=== PATIENT | male | born 1995 | race Caucasian/White ===

== ENCOUNTER → 2021-02-04 09:57 | Outpatient (CLI) | payer BC, SELFPAY | PROVIDERS: PCP Family Medicine; Visit Provider Nurse Practitioner | DX: U07.1 COVID-19 (principal) | CPT/HCPCS: C9803; U0003; U0005 ==

== ENCOUNTER 2023-10-22 15:02 | Outpatient (CLI) | payer BC, SELFPAY ==
[2023-10-22 16:28] LABS: Semen Viscosity Normal (Normal); Sperm Count 2 mil/mm3 (20-160)
[2023-10-22 16:29] LABS: Motility Quality Moderate Progression (Mod-Rapid); Sperm Motility 30 % (50-90); WBCs,Semen Negative
[2023-10-22 17:54] LABS: Sperm Morphology Normal (Normal)
[2023-10-22 18:10] LABS: 3Hr Sperm Motility 40 % (50-60)
[2023-10-22 18:11] LABS: 3Hr Motility Quality Moderate Progression (Mod-Rapid)
== END 2023-10-22 23:59 | disposition home or self-care (01) ==
LOC: LAB.DROPOF 15:04
PROVIDERS: PCP Family Medicine; Visit Provider Obstetrics & Gynecology
DX: Z31.41 Encounter for fertility testing (principal)
CPT/HCPCS: 89320

== ENCOUNTER 2023-12-20 10:20 | Outpatient (CLI) | payer BC, SELFPAY ==
--- OUTSIDE RECORDS SUMMARY | 2023-12-20 10:23 | XMS_ITS ---
Author [facility] Address [address] [place] [phone] Care Team Providers Care Ad Writer Name Role Phone Steve Green Primary Care Provider Clarissa Olmedo Unavailable [phone] ALLERGIES Allergen (clinical drug ingredient) Drug/Non Drug Allergy documented on EMR Reaction Allergy Type Onset Date Status cefaclor Cefaclor Unknown Drug Allergy Active REASON FOR REFERRAL Diagnosis 1 Vertigo (R42) [facility] Referring Provider First Name Clarissa Referring Provider Last Name Honorio Referring Provider Speciality Family Pra ctice Referred Provider ENT, . Referred Provider Specialty ENT General Notes Clarissa Olmedo 1:46:53 PM > persistent vertigo ; hearing lossKeyona Julia 12/07/2023 1:54:02 PM > assigned to scheduling.Rose Brynn 12/07/2023 2:01:18 PM > faxed to [facility] ENT Referral Priority Routine REASON FOR VISIT feels like he will pass out MEDICATIONS Medication SIG (Take, Route, Fr equency, Duration) Notes Start Date End Date Status Melatonin 5 MG 1 tablet in the even ing Orally Once a day Active PROBLEMS Problem Type ICD Code Onset Dates Problem Status W/U Status Risk SNOMED Code Notes Problem Hearing loss (H91.90) Active confirmed Hearing loss (70098668) Problem Insomnia (G47.00) Active confirmed Insomnia (442328607) VITAL SIGNS Weight 197.8 lbs 11/30/2023 Blood pressure systolic 128 mm Hg 11/30/19 24 Blood pressure diastolic 68 mm Hg 024 Heart Rate 63 /min 11/30/2023 Height 70.50 in 11/30/2023 BMI 27.98 kg/m2 11/30/2023 Encounters Encounter Location Date Provider Diagnosis [facility] [address] [facility] [address] [place] [phone] 11/30/2023 Clarissa Olmedo Hearing loss H91.90 ; Vertigo R42 and Insomnia G47.00 ASSESSMENTS Encounter Date Diagnosis Assessment Notes Treatment Notes Treatment Clinical Notes 11/30/2023 Hearing loss (ICD-10 - H91.90) [...] of caffeine several hours before his HS PLAN OF TREATMENT Medication Medication Name Sig Start Date Stop [...] before his HS Referrals Referral Date Details . ENT Next Appt Details Follow Up: prn, Reason: Progress Notes * Examination Category Sub-Category Detail Notes ENT/Respiratory Oral cavity : no erythema or e xudate seen on pharynx Ears: auditory canals norm al [...] motor WNL; no rapid alternating eye movements History and Physical Notes * HPI (History of Present Illness) Category Sub-Category Detail Notes ENT/respiratory sore throat ear pain cough Fever rhinorrhea Constitutional fatigue [...] it comes it out of no where Consultation Request Notes Referral Date Referring Provider Referred Provider Not es 11/30/2023 Clarissa Olmedo ENT, .
--- OUTSIDE RECORDS SUMMARY | 2023-12-20 10:23 | XMS_ITS | Patient Health Record ---
[facility] Address [address] [place] [id number] Care Team Providers Care Tour Manager Name Role Phone Steve Green Primary Care Provider Clarissa Olmedo Unavailable [phone] ALLERGIES Allergen (clinical drug ingredient) Drug/Non Drug Allergy documented on EMR Reaction Allergy Type Onset Date Status cefaclor Cefaclor Unknown Drug Allergy Active MEDICATIONS Medication SIG (Take, Route, Fr equency, Duration) Notes Start Date End Date Status Melatonin 5 MG 1 tablet in the even ing Orally Once a day Active IMMUNIZATIONS Vaccine Route Administration Date Status Comme nts HEPB VACC PED/ADOL DOSE IM Unknown 11/08/1995 Administe red MENINGOCOCCAL VACCINE, SC IM Intramuscular 08/14/2006 Admi nistered MMR Unknown 02/25/1996 Administered MMR Unknown 12/03/1998 Administered Tetanus Tdap-Adacel (over 7yrs) IM Intramuscular 08/14/2006 Administered SOCIAL HISTORY Sex Assigned At : Social History Observation Description Sex Assigned At Unknown PROBLEMS Problem Type ICD Code Onset Dates Problem Status W/U Status Risk SNOMED Code Notes Problem Insomnia (G47.00) Active confirmed Insomnia (443488894) Problem Hearing loss (H91.90) Active confirmed Hearing loss (72166960) VITAL SIGNS Heart Rate 63 /min 11/30/2023 Blood pressure diastolic 68 mm Hg 11/30/2023 Height 70.50 in 11/30/2023 Blood pressure systolic 128 mm Hg 11/30/2023 Weight 197.8 lbs 11/30/2023 BMI 27.98 kg/m2 11/30/2023 Encounters Encounter Location Date [facility] [address] [facility] [address] [place] [id number] 11/30/2023 Clarissa Olmedo Hearing loss H91.90 ; Vertigo R42 and Insomnia G47.00 ASSESSMENTS Encounter Date Diagnosis Assessment Notes Treatment Notes Treatment Clinical Notes 11/30/2023 Vertigo (ICD-10 - R42) continue with PRN Meclizine; ENT referral; suggested that the large dose of Melatonin may be part of the issue with his dizziness; also discussed the hot work environment and to increase water intake; possible BPPV 11/30/2023 Hearing loss (ICD-10 - H91.90) ENT referral 11/30/2023 Insomnia (ICD-10 - G47.00) discussed decreasing Melatonin due to possible SE from this; discussed sleep hygiene with decrease of caffeine several hours before his HS PLAN OF TREATMENT No Information Insurance Providers Payer Name Payer Address Payer Phone Subscriber Number Group Number Insured Name Patient Relationship to Insured Coverage Start Date Coverage End Date MAGGI DOSHI [facility] [address] [place] [address] [id number] JOURDAN WILSON Self - patient is the insured MEDICATIONS ADMINISTERED Medication Instructions Date of Administration Dosage Notes Bicillin LA 1,200,000 11/24/2004 0.5 cm3 Depo- Medrol 40 mg/ml 06/03/2009 1 mL MEDICAL (GENERAL) HISTORY Surgical History Surgery Date(Month/Year) lesion removed from lip Hospitalization History Reason Date(Month/Year) [facility] ER-ear ache 05/17/09
--- OUTSIDE RECORDS SUMMARY | 2023-12-20 10:23 | XMS_ITS ---
Author Organization [facility] Address [address] [place] [id number] Care Team Providers Care Hybrid Tester Name Role Phone Steve Green Primary Care Provider Migration, Provider Unavailable Unavailable ALLERGIES Allergen (clinical drug ingredient) Drug/Non Drug Allergy documented on EMR Reaction Allergy Type Onset Date Status cefaclor Cefaclor Unknown Drug Allergy Active [facility]AS[facility] Encounter MEDICATIONS Medication SIG (Take, Route, Fr equency, Duration) Notes Start Date End Date Status Clotrimazole 1 % 1 kam applied topica lly 2 times a day for 2 weeks 02/26/2015 Not-Taking Encounters Encounter Location Date Provider Diagnosis [facility] [address] [place] [phone] 07/25/2022 Provider Migration PLAN OF TREATMENT No Information
[2023-12-20 11:37] LABS: Free T4 (Free Thyroxine) 0.94 ng/dl (0.78-2.19)
[2023-12-20 11:52] LABS: Thyroid Stimulating Hormone 0.93 uIU/mL (0.465-4.68)
== END 2023-12-20 23:59 | disposition home or self-care (01) ==
LOC: LAB 10:21
PROVIDERS: PCP Family Medicine; Visit Provider Nurse Practitioner
DX: R42 Dizziness and giddiness (principal); M54.2 Cervicalgia
CPT/HCPCS: 36415; 84439; 84443

== ENCOUNTER 2023-12-28 06:28 | Outpatient (CLI) | payer BC, SELFPAY ==
--- NOTE | 2023-12-28 06:28 | CT_ITS ---
FINAL REPORT CLINICAL HISTORY: .vertigo COMPARISON: None FINDINGS: Axial images of the head were obtained without contrast. Coronal and sagittal reformatted images were also obtained.This study was performed with techniques to keep radiation doses as low as reasonably achievable (ALARA). Individualized dose reduction techniques using automated exposure control or adjustment of mA and/or kV according to the patient's size were employed. There is no evidence of intracranial hemorrhage or mass. The ventricular size is within normal limits. There is no evidence of shift of the midline structures. No abnormal extra axial fluid collection is identified. No skull abnormality is seen on the bone window images. IMPRESSION: No acute intracranial abnormality. Authenticated and ERN
--- NOTE | 2023-12-28 06:28 | CT_ITS ---
FINAL REPORT TECHNIQUE: Thin section axial CT images with coronal and sagittal reformats were performed through the neck. This study was performed with techniques to keep radiation doses as low as reasonably achievable (ALARA). Individualized dose reduction techniques using automated exposure control or adjustment of mA and/or kV according to the patient's size were employed. CLINICAL HISTORY: .vertigo COMPARISON: None FINDINGS: CT SOFT TISSUES NECK: The nasopharynx, oropharynx, hypopharynx, and larynx are unremarkable in appearance. The salivary glands are unremarkable. There are small nonspecific bilateral cervical lymph nodes noted, but no evidence of adenopathy is seen. The thyroid gland is unremarkable in appearance. IMPRESSION: No acute process. Authenticated and ERN
== END 2023-12-28 23:59 | disposition home or self-care (01) ==
LOC: RAD 06:28
PROVIDERS: PCP Family Medicine; Visit Provider Nurse Practitioner
DX: R42 Dizziness and giddiness (principal); M54.2 Cervicalgia
CPT/HCPCS: 70450; 70490

== ENCOUNTER 2024-01-27 13:52 | Outpatient (POV) | payer BC, SELFPAY | END 2024-01-27 23:59 | disposition home or self-care (01) | LOC: SC 13:52 | PROVIDERS: Visit Provider Specialist/Technologist | DX: Z00.00 Encounter for general adult medical examination without abnormal findings (principal) ==

== ENCOUNTER 2024-06-08 09:46 | Day surgery (SDC) | payer BC, SELFPAY ==
[2024-06-08 10:11] VITALS: BP 128/86; PULSE 78; RESP 18; TEMP 36.7; O2SAT 97; BMI 28.7
[2024-06-08 10:45] LABS: Basophils # 0.1 K/mm3 (0-0.2); Eosinophils # 0.1 K/mm3 (0.0-0.4); Eosinophils % 2.2 % (0.1-12.0); Hematocrit 44.5 % (42.0-52.0); Hemoglobin 14.9 g/dL (14.1-18.0); Lymphocytes % 33.9 % (10-50); Mean Corpuscular HGB Conc 33.5 g/dL (31.8-35.4); Mean Corpuscular Volume 86.6 fl (80-94); Monocytes # 0.7 K/mm3 (0.1-1.0); Monocytes % 11.3 % (1.7-9.3); Neutrophils % 51.3 % (37.0-80.0); Nucleated Red Blood Cells # 0 10^3/uL; Nucleated Red Blood Cells % 0 %; Platelet Count 331 K/mm3 (142-424); Red Blood Count 5.14 M/mm3 (4.60-6.20); Red Cell Distribution Width 13.3 % (11.5-17.5); Red Cell Distribution Width-SD 42.3 fL; White Blood Count 5.9 K/mm3 (4.8-10.8)
[2024-06-08 11:18] LABS: Alanine Aminotransferase 20 U/L (12-78); Albumin Level 4.2 g/dl (3.5-5.0); Albumin/Globulin Ratio 1.3 (1.1-1.8); Alkaline Phosphatase 61 U/L (38-126); Anion Gap 13.3 mEq/L (5-15); Aspartate Amino Transferase 27 U/L (17-59); Bilirubin,Total 0.5 mg/dl (0.2-1.3); Blood Urea Nitrogen 17 mg/dl (9-20); Calcium 9.1 mg/dl (8.4-10.2); Carbon Dioxide 26 mmol/L (22.0-30.0); Chloride 105 mmol/L (98-107); Creatinine Clearance Estimated 160 mL/min (50-200); Estimated Glomerular Filt Rate 100 ml/min (>60); GFR (African American) 121 ML/MIN (>60); Globulin 3.2 g/dL (1.3-3.2); Glucose 97 mg/dl (74-100); Potassium 4.3 mmoL/L (3.5-5.1); Sodium 140 mmol/L (136-145); Total Protein,Serum 7.4 g/dl (6.3-8.2)
[2024-06-08 12:08] LABS: Vitamin B12 781 pg/mL (239-931)
--- NOTE | 2024-06-08 15:05 | P.PCN_ITS ---
[facility] Procedure Note Date: 06/08/24 Time: 10:00 Procedure Note:: Tilt Table Procedure Note Procedure:? Upright Tilt Table Test Requesting Physician: Dr. Shasha Gay Indication: Recurrent near syncope Medications:?None ? Pre-test Vital Signs: (Supine):?BP 132/66, HR 61, O2 100% Procedure Summary: Patient placed supine on tilt table and secured with straps.? EKG, blood pressure cuff, and pulse oximeter were all in place and monitored every 5 to 10 minutes.? Table was tilted to 70 to 80 degrees within 10 to 15 seconds.? Vitals continuously monitored every 1 to 2 minutes.? Patient maintained upright position for 10 minutes at which point he developed pallor, diaphoresis, and near syncope with increase in HR to 100bpm and no significant change in blood pressure. Patient was returned to supine position and had almost immediate relief of symptoms. There was no LOC. Patient quickly returned to baseline and the test was terminated. Complications: None Conclusion: Test results consistent with POTS
== END 2024-06-08 23:59 | disposition home or self-care (01) ==
LOC: RT 06-09 07:37
PROVIDERS: PCP Family Medicine; Visit Provider Specialist
DX: R55 Syncope and collapse (principal); R23.1 Pallor; R61 Generalized hyperhidrosis; R00.0 Tachycardia, unspecified
CPT/HCPCS: 80053; 82607; 85025; 93660

== ENCOUNTER → 2024-08-02 07:50 | Outpatient (CLI) | payer BC, SELFPAY ==
--- OUTSIDE RECORDS SUMMARY | 2023-11-30 09:15 | XMS_ITS ---
Author Organization [facility] Address [address] [place] [phone] Care Team Providers Care Tanyard Worker Name Role Phone Steve Green Primary Care Provider Clarissa Olmedo Unavailable [phone] Allergies Allergen (clinical drug ingredient) Drug/Non Drug Allergy documented on EMR Reaction Allergy Type Onset Date Status cefaclor Cefaclor Unknown Drug Allergy Active Reason For Referral Diagnosis 1 Vertigo (R42) [facility] Referring Provider First Name Clarissa Referring Provider Last Name Honorio Referring Provider Speciality Family Pra ctice Referred Provider ENT, . Referred Provider Specialty ENT General Notes Clarissa Olmedo 1:46:53 PM > persistent vertigo ; hearing lossKeyona Julia 12/07/2023 1:54:02 PM > assigned to scheduling.Rose Brynn 12/07/2023 2:01:18 PM > faxed to [facility] ENT Referral Priority Routine REASON FOR VISIT feels like he will pass out Medications Medication SIG (Take, Route, Fr equency, Duration) Notes Start Date End Date Status Melatonin 5 MG 1 tablet in the even ing Orally Once a day Active Problems Problem Type SNOMED Code ICD Code Onset Dates Problem Status W/U Status Risk Notes Problem Hearing loss (H91.90) Active confirmed Problem Insomnia (530617583) Insomnia (G47.00) Active confirmed Vital Signs Blood pressure systolic 128 mm Hg 11/30/19 24 Blood pressure diastolic 68 mm Hg 024 Heart Rate 63 /min 11/30/2023 Height 70.50 in 11/30/2023 Weight 197.8 lbs 11/30/2023 BMI 27.98 kg/m2 11/30/2023 Encounters Encounter Location Date Provider Diagnosis [facility] [address] [facility] [address] [place] [phone] 11/30/2023 Clarissa Olmedo Hearing loss H91.90 ; [...] Notes * JOURDAN WILSONDOB:[birth year] (28 yo M)Acc No.[id number]:11/30/2023 Progress Notes Patient: JOURDAN CASTILLO TYLER Provider: AGATHA Nino :1995 A ge:28 Y S ex:Male Date:11/30/2023 Address:[facility] [address], [id number] Pcp:Steve Green Subjective: * Chief Complaints: * [...] rn * Billing Information: * Visit Code: 04735 Office Visit, Est Pt., Level 4. * Procedure Codes: 76269 PULSE OX. * Electronic signature of Elsi Olmedo APRN on 08/02/2024 at 07:53 AM EDT Sign off status: Pending * Provider: AGATHA Nino Date: Generated for Shania ruff/Prashant/Innaitting on: 0 08/02/2024 07:53 AM EDT History and Physical Notes * [...]
--- OUTSIDE RECORDS SUMMARY | 2024-08-02 07:53 | XMS_ITS | Clinical Summary ---
Author Organization [facility] Address [address] [place] [address] Care Team Providers Care Insulation Worker Name Role Phone Pcp, No Primary Care Provider [phone] Source Comments This information has been disclosed to you from confidential records protectedfrom disclosure by state law. You shall make no further disclosure of thisinformation without the specific, written, and informed release of theindividual to whom it pertains, or as otherwise permitted by law. A generalauthorization for the release of medical or other information is not sufficientfor the purposes of therelease of HIV test results or diagnoses. [id number] Social History Tobacco Use Types Packs/Day Years Used Date Smoking Tobacco: Never Assessed Sex and Gender Information Value Date Recorded Sex Assigned at Not on file Legal Sex Male 1:16 PM EST Gender Identity Not on file Sexual Orientation Not on file Plan of Treatment Health Maintenance Due Date Last Done Comments Alcohol Misuse Screening 2012 Depression Screening 2012 HIV Screening 2012 Immunization: DTaP/Tdap/Td ( 1 - Tdap) 2013 Immunization: Hepatitis B (1 of 3 - 19+ 3-dose series) 2013 Immunization: COVID-19 ( season) 2023 Immunization: Influenza (MyC gould) (Season Ended) 2024 Hepatitis C Screening (MyChart) Completed Immunization: Pneumococcal Aged Out N o longer eligible based on patient's age to complete this topic Procedures Procedure Name Priority Date/Time Associated Diagnosis Comments HEPATITIS C AB W/REFLEX TO HCV RNA, QN, PCR Routine 01/18/2024 2:32 PM EST from Last 3 Months or Most Recently Relevant to Health Maintenance Results * Hepatitis C Ab w/reflex to HCV RNA, QN, PCR (01/18/2024 2:32 PM EST) HCV Ab Non Reactive Non Reactive [facility] 1 01/18/2024 2:32 PM EST 01/18/2024 Narrative [facility] - 01/19/2024 6:09 AM EST Performed at: - [facility] [address] [id number] Floor Space Allocator: Fco Pimentel PhD, Phone: [phone] us Jenae Henry MD LAB BLOOD ORDERABLES Final R esult [facility] 1 from Last 3 Months or Most Recently Relevant to Health Maintenance [place] [address] Care Teams Insulation Worker Relationship Specialty Start Date End Date Pcp, No No Address PCP - General 01/18/24
--- OUTSIDE RECORDS SUMMARY | 2024-08-02 07:53 | XMS_ITS | Patient Health Record ---
Author [facility] Address [address] [place] [phone] Care Team Providers Care Air Brush Artist Name Role Phone Steve Green Primary Care Provider Clarissa Olmedo [phone] Allergies Allergen (clinical drug ingredient) Drug/Non Drug Allergy documented on EMR Reaction Allergy Type Onset Date Status cefaclor Cefaclor Unknown Drug Allergy Active Medications Medication SIG (Take, Route, Fr equency, Duration) Notes Start Date End Date Status Melatonin 5 MG 1 tablet in the even ing Orally Once a day Active Immunizations Vaccine Route Administration Date Status Comme nts Tetanus Tdap-Adacel (over 7yrs) IM Intramuscular 08/14/2006 Administered MMR Unknown 02/25/1996 Administered MMR Unknown 12/03/1998 Administered MENINGOCOCCAL VACCINE, SC IM Intramuscular 08/14/2006 Admi nistered HEPB VACC PED/ADOL DOSE IM Unknown 11/08/1995 Administe red Problems Problem Type SNOMED Code ICD Code Onset Dates Problem Status W/U Status Risk Notes Problem Insomnia (960991041) Insomnia (G47.00) Active confirmed Problem Hearing loss (H91.90) Active confirmed Vital Signs Heart Rate 63 /min 11/30/2023 Blood pressure diastolic 68 mm Hg 11/30/2023 Height 70.50 in 11/30/2023 Blood pressure systolic 128 mm Hg 11/30/2023 Weight 197.8 lbs 11/30/2023 BMI 27.98 kg/m2 11/30/2023 Encounters Encounter Location Date Provider [facility] [address] [place] [id number] 11/30/2023 Clarissa Olmedo Hearing loss H91.90 ; Vertigo R42 and Insomnia G47.00 Assessments Encounter Date Diagnosis (ICD Code) Assessment Notes Treatment Notes Treatment Clinical Notes Section Notes 11/30/2023 Vertigo (ICD-10 - R42) continue [...] hours before his HS Plan Of Treatment No Information Insurance Providers Payer Name Payer Address Payer Phone Subscriber Number Group Number Insured Name Patient Relationship to Insured Coverage Start Date Coverage End Date MAGGI DOSHI [employer] [address] [place] [address] [phone] [id number] JOURDAN WILSON Self - patient is the insured Medications Administered Medication Instructions Date of Administration Dosage Notes Bicillin LA 1,200,000 11/24/2004 0.5 mL Depo- Medrol 40 mg/ml 06/03/2009 1 mL Medical (General) History Surgical History Surgery Date(Month/Year) lesion removed from lip Hospitalization History Reason Date(Month/Year) [facility] ER-ear ache 05/17/09
== END ==
LOC: SL 07:51
PROVIDERS: PCP Specialist; Visit Provider Specialist
DX: G47.30 Sleep apnea, unspecified (principal); G47.26 Circadian rhythm sleep disorder, shift work type; R53.83 Other fatigue; R06.83 Snoring
CPT/HCPCS: G0399

== ENCOUNTER 2024-08-03 07:51 | Outpatient (CLI) | payer BC, SELFPAY ==
--- OUTSIDE RECORDS SUMMARY | 2023-11-30 09:15 | XMS_ITS ---
Author [facility] Address [address] [place] [phone] Care Team Providers Care Cooker Syrup Name Role Phone Steve Green Primary Care Provider Clarissa Olmedo Unavailable [phone] Allergies Allergen (clinical drug ingredient) Drug/Non Drug Allergy documented on EMR Reaction Allergy Type Onset Date Status cefaclor Cefaclor Unknown Drug Allergy Active Reason For Referral Diagnosis 1 Vertigo (R42) Referral [facility] Referring Provider First Name Clarissa Referring Provider Last Name Honorio Referring Provider Speciality Family Pra ctice Referred Provider ENT, . Referred Provider Specialty ENT General Notes Clarissa Olmedo 1:46:53 PM > persistent vertigo ; hearing lossKeyona Julia 12/07/2023 1:54:02 PM > assigned to scheduling.Rose Brynn 12/07/2023 2:01:18 PM > faxed to [facility] ENT Referral Priority Routine REASON FOR VISIT feels like he will pass out Medications Medication SIG (Take, Route, Fr equency, Duration) Notes Start Date End Date Status Melatonin 5 MG 1 tablet in the even ing Orally Once a day Active Problems Problem Type SNOMED Code ICD Code Onset Dates Problem Status W/U Status Risk Notes Problem Hearing loss (47782108) Hearing loss (H91.90) Active confirmed Problem Insomnia (765250833) Insomnia (G47.00) Active confirmed Vital Signs Blood pressure systolic 128 mm Hg 11/30/19 24 Blood pressure diastolic 68 mm Hg 024 Heart Rate 63 /min 11/30/2023 Height 70.50 in 11/30/2023 Weight 197.8 lbs 11/30/2023 BMI 27.98 kg/m2 11/30/2023 Encounters Encounter Location Date Provider Diagnosis [facility] [address] [place] [phone] 11/30/2023 Clarissa Olmedo Hearing loss H91.90 ; [...] Notes * JOURDAN WILSONDOB:[birth year] (28 yo M)Acc No.[id number]:11/30/2023 Progress Notes Patient: Alok MARYSEJOURDAN Vo Provider: AGATHA Nino :1995 A ge:28 Y S ex:Male Date:11/30/2023 Address:[facility] [address], [id number] Pcp:Steve Green Subjective: * Chief Complaints: * [...] NAD alert active well nourished and hydrated. Eyes: sclera and conjunctiva clear. Ears: auditory canals normal bilaterally tympanic membranes normal bilaterally. Nose : nares patent. Oral cavity : no erythema or exudate seen on pharynx.? Neck : supple no cervical lymphadenopathy thyroid normal; FROM. Heart : RRR. Lungs: CTAB A&P. Extremities : no edema. G eneral Examination: Neurologic [...] OX * Follow Up: p rn * Billing Information: * Visit Code: 63881 Office Visit, Est Pt., Level 4. * Procedure Codes: 38731 PULSE OX. * Electronic signature of Elsi Olmedo APRN on 08/03/2024 at 07:54 AM EDT Sign off status: Pending * Provider: AGATHA Nino Date: Generated for Shania ruff/Prashant/Innaitting on: 0 08/03/2024 07:54 AM EDT History and Physical Notes * [...]
--- OUTSIDE RECORDS SUMMARY | 2024-08-03 07:54 | XMS_ITS | Patient Health Record ---
Author Organization [facility] Address [address] [facility] [address] [place] [phone] Care Team Providers Care Production Cell Leader Name Role Phone Steve Green Primary Care Provider Clarissa Olmedo Unavailable [phone] Allergies Allergen (clinical drug ingredient) Drug/Non Drug [...] Status W/U Status Risk Notes Problem Insomnia (902271987) Insomnia (G47.00) Active confirmed Problem Hearing loss (63938803) Hearing loss (H91.90) Active confirmed Vital Signs Heart Rate 63 /min 11/30/2023 Blood pressure diastolic 68 mm Hg 11/30/2023 Height 70.50 in 11/30/2023 Blood pressure systolic 128 mm Hg 11/30/2023 Weight 197.8 lbs 11/30/2023 BMI 27.98 kg/m2 11/30/2023 Encounters Encounter Location Date Provider [facility] [address] [place] [id number] 11/30/2023 Clarissa Olmedo Hearing loss H91.90 ; [...] [employer] [address] [place] [address] [id number] JOURDAN WILSON Self - patient is the insured Medications Administered Medication Instructions Date of Administration Dosage Notes Bicillin LA 1,200,000 11/24/2004 0.5 mL Depo- Medrol 40 mg/ml 06/03/2009 1 mL Medical (General) History Surgical History Surgery Date(Month/Year) lesion removed from lip Hospitalization History Reason Date(Month/Year) [facility] ER-ear ache 05/17/09
--- OUTSIDE RECORDS SUMMARY | 2024-08-03 07:54 | XMS_ITS | Clinical Summary ---
Author Organization [facility] Address [address] [place] [address] Care Team Providers Care Electrotype Finisher Name Role Phone Pcp, No Primary Care Provider [phone] Source Comments This information has been disclosed [...] therelease of HIV test results or diagnoses. [id number] Social History Tobacco Use Types Packs/Day [...] 6:09 AM EST Performed at: - [facility] [address] [id number] Buckle Stringer: Fco Pimentel PhD, Phone: [phone] us Jenae Henry MD LAB BLOOD ORDERABLES Final R esult [facility] 1 from Last 3 Months or Most Recently Relevant to Health Maintenance [place] [address] [address] [place] [address] Care Teams Electrotype Finisher Relationship Specialty Start Date End Date Pcp, No No Address PCP - General 01/18/24
[2024-08-03 08:15] LABS: Basophils # 0.1 K/mm3 (0-0.2); Eosinophils # 0.2 Kmm3 (0.0-0.4); Eosinophils % 2.5 % (0.1-12.0); Hematocrit 46.2 % (42.0-52.0); Hemoglobin 14.9 g/dL (14.1-18.0); Immature Granulocytes # 0.02 10^3uL; Immature Granulocytes % 0.3 %; Lymphocytes # 2.9 K/mm3 (0.7-4.5); Lymphocytes % 42.2 % (10-50); Mean Corpuscular HGB Conc 32.3 g/dL (31.8-35.4); Mean Corpuscular Volume 86.7 fl (80-94); Mean Platelet Volume 10.6 fl (7.4-10.4); Monocytes # 0.7 K/mm3 (0.1-1.0); Monocytes % 10.5 % (1.7-9.3); Neutrophils # 2.9 K/mm3 (1.8-7.8); Neutrophils % 43.5 % (37.0-80.0); Nucleated Red Blood Cells # 0 10^3/uL; Nucleated Red Blood Cells % 0 %; Platelet Count 296 K/mm3 (142-424); Red Blood Count 5.33 M/mm3 (4.60-6.20); Red Cell Distribution Width 13.3 % (11.5-17.5); Red Cell Distribution Width-SD 42.1 fL; White Blood Count 6.8 K/mm3 (4.8-10.8)
[2024-08-03 08:41] LABS: Alanine Aminotransferase 26 U/L (12-78); Albumin Level 4.1 g/dl (3.5-5.0); Alkaline Phosphatase 59 U/L (38-126); Anion Gap 6.4 mEq/L (5-15); Aspartate Amino Transferase 25 U/L (17-59); Bilirubin,Direct 0.1 mg/dl (0.0-0.4); Bilirubin,Indirect 0.3 mg/dL (0.0-0.9); Bilirubin,Total 0.4 mg/dl (0.2-1.3); Bilirubin,Unconjugated 0.3 mg/dL (0.0-1.1); Blood Urea Nitrogen 18 mg/dl (9-20); Calcium 9.3 mg/dl (8.4-10.2); Carbon Dioxide 30 mmol/L (22.0-30.0); Chloride 105 mmol/L (98-107); Chol/HDL Ratio 2.8 (1-3.5); Cholesterol 148 mg/dl (140-200); Estimated Glomerular Filt Rate 100 ml/min (>60); GFR (African American) 121 ML/MIN (>60); Glucose 93 mg/dl (74-100); HDL Cholesterol 53 mg/dl (40-60); Magnesium 1.7 mg/dl (1.6-2.3); Potassium 4.4 mmoL/L (3.5-5.1); Sodium 137 mmol/L (136-145); Total Protein,Serum 6.5 g/dl (6.3-8.2); Triglycerides 69 mg/dl (30-150); VLDL Cholesterol 14 mg/dL (0-40)
[2024-08-03 08:52] LABS: Direct LDL Cholesterol 37.74 mg/dL (100-129)
[2024-08-03 08:59] LABS: Free T4 (Free Thyroxine) 1.02 ng/dl (0.78-2.19)
[2024-08-04 12:18] LABS: Cortisol,AM 14.7 ug/dL (6.2-19.4)
[2024-08-07 12:22] LABS: Antinuclear Antibodies, IFA Negative (.)
[2024-08-09 19:18] LABS: Testosterone, Total, LC/MS 530.5 ng/dL (264.0-916.0)
[2024-08-13 18:09] LABS: Dopamine, Plasma 13.2 pg/mL (0.0-36.7); Epinephrine, Plasma 29.5 pg/mL (0.0-55.4); Norepinephrine, Plasma 315 pg/mL (115-524)
== END 2024-08-03 23:59 | disposition home or self-care (01) ==
LOC: LAB 07:52
PROVIDERS: PCP Family Medicine; Visit Provider Internal Medicine
DX: R06.02 Shortness of breath (principal); R61 Generalized hyperhidrosis; R14.0 Abdominal distension (gaseous); R42 Dizziness and giddiness; R53.83 Other fatigue; R55 Syncope and collapse
CPT/HCPCS: 36415; 80048; 80061; 80076; 82384; 82533; 83520; 83735; 84402; 84403; 84439; 84443; 85025; 86038; 93270

== ENCOUNTER 2024-08-28 09:39 | Outpatient (CLI) | payer BC, SELFPAY ==
--- OUTSIDE RECORDS SUMMARY | 2023-11-30 09:15 | XMS_ITS ---
Author [facility] Address [address] [place] [phone] Care Team Providers Care Consumer Services Advisor Name Role Phone Steve Green Primary Care Provider [phone] Clarissa Olmedo Unavailable [phone] Allergies Allergen (clinical drug ingredient) Drug/Non Drug Allergy documented on EMR Reaction Allergy Type Onset Date Status cefaclor Cefaclor Unknown Drug Allergy Active Reason For Referral Diagnosis 1 Vertigo (R42) [facility] Referring Provider First Name Clarissa Referring Provider Last Name Honorio Referring Provider Speciality Family Pra ctice Referred Provider ENT, . Referred Provider Specialty ENT General Notes Clarissa Olmedo 1:46:53 PM > persistent vertigo ; hearing lossKeyona Julia 12/07/2023 1:54:02 PM > assigned to scheduling.Rose Brynn 12/07/2023 2:01:18 PM > faxed to [facility] ENT Referral Priority Routine REASON FOR VISIT feels like he will pass out Medications Medication SIG (Take, Route, Fr equency, Duration) Notes Start Date End Date Status Melatonin 5 MG 1 tablet in the even ing Orally Once a day Active Problems Problem Type SNOMED Code ICD Code Onset Dates Problem Status W/U Status Risk Notes Problem Hearing loss (92975660) Hearing loss (H91.90) Active confirmed Problem Insomnia (807849560) Insomnia (G47.00) Active confirmed Vital Signs Weight 197.8 lbs 11/30/2023 Blood pressure systolic 128 mm Hg 11/30/19 24 Blood pressure diastolic 68 mm Hg 024 Heart Rate 63 /min 11/30/2023 Height 70.50 in 11/30/2023 BMI 27.98 kg/m2 11/30/2023 Encounters Encounter Location Date Provider Diagnosis [facility] [address] [place] [phone] 11/30/2023 Clarissa Olmedo Hearing loss H91.90 ; [...] Notes * JOURDAN WILSONDOB:[birth year] (28 yo M)Acc No.[id number]:11/30/2023 Progress Notes Patient: Alok MARYSEJOURDAN Vo Provider: AGATHA Nino :1995 A ge:28 Y S ex:Male Date:11/30/2023 Address:[facility] [address], [id number] Pcp:Steve Green Subjective: * Chief Complaints: * [...] * Images: Billing Information: * Visit Code: 81243 Office Visit, Est Pt., Level 4. * Procedure Codes: 55921 PULSE OX. * Electronic signature of Elsi Omledo APRN on 08/28/2024 at 09:51 AM EDT Sign off status: Pending * Provider: AGATHA Nino Date: 1 Generated for Shania ruff/Prashant/Innaitting on: 0 08/28/2024 09:51 AM EDT History and Physical Notes * [...]
--- OUTSIDE RECORDS SUMMARY | 2024-08-28 09:52 | XMS_ITS | Clinical Summary ---
Author Organization [facility] Address [address] [place] [address] Care Team Providers Care Concrete Craftsman Name Role Phone Pcp, No Primary Care Provider [phone] Source Comments This information has been disclosed [...] therelease of HIV test results or diagnoses. [id number] Social History Tobacco Use Types Packs/Day [...] ( season) 2023 Immunization: Influenza (MyC gould) (#1) 2024 Hepatitis C Screening (MyChart) Completed Immunization: [...] 6:09 AM EST Performed at: - [facility] [address] [id number] Product Support Manager: Fco Pimentel PhD, Phone: [phone] us Jenae Henry MD LAB BLOOD ORDERABLES Final R esult [facility] 1 from Last 3 Months or Most Recently Relevant to Health Maintenance [place] [address] Care Teams Concrete Craftsman Relationship Specialty Start Date End Date Pcp, No No Address PCP - General 01/18/24
--- OUTSIDE RECORDS SUMMARY | 2024-08-28 09:52 | XMS_ITS | Patient Health Record ---
[facility] Address [address] [facility] [address] [place] [phone] Care Team Providers Care Drilling Supervisor Name Role Phone Steve Green Primary Care Provider [phone] Clarissa Olmedo Unavailable [phone] Allergies Allergen (clinical drug ingredient) Drug/Non Drug [...] Tdap-Adacel (over 7yrs) IM Intramuscular 08/14/2006 Administered Problems Problem Type SNOMED Code ICD Code Onset Dates Problem Status W/U Status Risk Notes Problem Insomnia (000713455) Insomnia (G47.00) Active confirmed Problem Hearing loss (65697173) Hearing loss (H91.90) Active confirmed Vital Signs Heart Rate 63 /min 11/30/2023 Blood pressure diastolic 68 mm Hg 11/30/2023 Height 70.50 in 11/30/2023 Blood pressure systolic 128 mm Hg 11/30/2023 Weight 197.8 lbs 11/30/2023 BMI 27.98 kg/m2 11/30/2023 Encounters Encounter Location Date [facility] [address] [place] [id number] 11/30/2023 Clarissa Olmedo Hearing loss H91.90 ; [...] [employer] [address] [place] [address] [id number] JOURDAN WILSON Self - patient is the insured Medications Administered Medication Instructions Date of Administration Dosage Notes Bicillin LA 1,200,000 11/24/2004 0.5 mL Depo- Medrol 40 mg/ml 06/03/2009 1 mL Medical (General) History Surgical History Surgery Date(Month/Year) lesion removed from lip Hospitalization History Reason Date(Month/Year) [facility] ER-ear ache 05/17/09
[2024-08-29 10:16] LABS: Sodium, Urine 198 mmol/L (Not Estab.); Sodium, Urine 337 mmol/24 hr (58-337)
== END 2024-08-28 23:59 | disposition home or self-care (01) ==
LOC: LAB.DROPOF 09:39
PROVIDERS: PCP Family Medicine; Visit Provider Internal Medicine
DX: R06.02 Shortness of breath (principal); R61 Generalized hyperhidrosis; R14.0 Abdominal distension (gaseous); R42 Dizziness and giddiness; R53.83 Other fatigue; R55 Syncope and collapse
CPT/HCPCS: 84300

== ENCOUNTER 2024-08-30 11:03 | Outpatient (CLI) | payer BC, SELFPAY ==
--- OUTSIDE RECORDS SUMMARY | 2023-11-30 09:15 | XMS_ITS ---
[facility] Organization [facility] Address [address] [place] [id number] Care Team Providers Care Fountain Dispenser Name Role Phone Steve Green Primary Care Provider Clarissa Olmedo Unavailable [phone] Allergies Allergen (clinical drug ingredient) Drug/Non Drug Allergy documented on EMR Reaction Allergy Type Onset Date Status cefaclor Cefaclor Unknown Drug Allergy Active Reason For Referral Diagnosis 1 Vertigo (R42) [facility] Referring Provider First Name Clarissa Referring Provider Last Name Honorio Referring Provider Speciality Family Pra ctice Referred Provider ENT, . Referred Provider Specialty ENT General Notes Clarissa Olmedo 1:46:53 PM > persistent vertigo ; hearing lossKeyona Julia 12/07/2023 1:54:02 PM > assigned to scheduling.Rose Brynn 12/07/2023 2:01:18 PM > faxed to [facility] ENT Referral Priority Routine REASON FOR VISIT feels like he will pass out Medications Medication SIG (Take, Route, Fr equency, Duration) Notes Start Date End Date Status Melatonin 5 MG 1 tablet in the even ing Orally Once a day Active Problems Problem Type SNOMED Code ICD Code Onset Dates Problem Status W/U Status Risk Notes Problem Hearing loss (24324232) Hearing loss (H91.90) Active confirmed Problem Insomnia (G47.00) Active confirmed Vital Signs Blood pressure systolic 128 mm Hg 11/30/19 24 Blood pressure diastolic 68 mm Hg 024 Heart Rate 63 /min 11/30/2023 Height 70.50 in 11/30/2023 Weight 197.8 lbs 11/30/2023 BMI 27.98 kg/m2 11/30/2023 Encounters Encounter Location Date Provider Diagnosis [facility] [address] [facility] [address] [place] [phone] 11/30/2023 Clarissa Olmedo Hearing loss H91.90 ; Vertigo R42 and Insomnia G47.00 Assessments Encounter Date Diagnosis (ICD Code) Assessment Notes Treatment Notes Treatment Clinical Notes Section Notes 11/30/2023 Hearing loss (ICD-10 - H91.90) ENT referral 11/30/2023 Vertigo (ICD-10 - R42) continue with PRN Meclizine; ENT referral; suggested that the large dose of Melatonin may be part of the issue with his dizziness; also discussed the hot work environment and to increase water intake; possible BPPV 11/30/2023 Insomnia (ICD-10 - G47.00) discussed decreasing Melatonin due to possible SE from this; discussed sleep hygiene with decrease of caffeine several hours before his HS Plan Of Treatment Medication Medication Name Sig Start Date Stop Date Notes Melatonin 5 MG 1 tablet in the evening Orally Once a day Treatment Notes Assessment Notes Hearing loss ENT referral Vertigo continue with PRN Me clizine; ENT referral; suggested that the large dose of Melatonin may be part of the issue with his dizziness; also discussed the hot work environment and to increase water intake; possible BPPV Insomnia discussed decreasing Melatonin due to possible SE from this; discussed sleep hygiene with decrease of caffeine several hours before his HS Referrals Referral Date Details 11/30/2023 11/30/2023, . ENT Next Appt Details Follow Up: prn, Reason: Progress Notes * JOURDAN WILSONDOB:[birth year] (28 yo M)Acc No.[id number]:11/30/2023 Progress Notes Patient: JOURDAN CASTILLO TYLER Provider: AGATHA Nino :1995 A ge:28 Y S ex:Male Date:11/30/2023 Address:[facility] [address], [id number] Pcp:Steve Green Subjective: * Chief Complaints: * 1 . Feels like he will pass out. * HPI: C onstitutional: 28 year old male presents with c/o fatigue P t sts he feels like he is going to pass out. Pt sts he has been getting very dizzy. Pt sts it first started last year, and sts that over the last month it has gotten progressively worse and sts he can not get out of bed and feels like he is going to vomit. Pt sts that it comes it out of no where. today he feels fine; describes his job duties which is in hot environment; he does sweat alot; he feel that he drinks plently of water; he has tried OTC meclizine which has helped; also to note he takes 25mg of melatonin for sleep; is with him and presents recent lab data which shows normal LFT, renal function, electrolytes, CBC, lipid profile. E NT/respiratory: c/o rhinorrhea. Denies : sore throat. D enies : cough. D enies : Fever.?Denies : ear pain. no tobacco; occasionally ETOH; eats x3/day; caffeine =coffee 4 cups daily. * ROS: D ERMATOLOGY: no R adrienne. n o H roro. G ASTROENTEROLOGY: no N ausea. n o V omiting. n o D iarrhea.? N EUROLOGY: Vision n o disturbance. n o H eadache. I nsomnia yes. D izziness yes. U ROLOGY: no D ifficulty urinating. n o B lood in urine. * Medical History: M edical History Verified. * Surgical History: l esion removed from lip . * Hospitalization/Major Diagno stic Procedure: H ER-ear ache 05/17/09. * Family History: F ather: alive 69 yrs. M other: alive 58 yrs. P aternal Grand Father: . P aternal Grand Mother: alive. M aternal Grand Father: alive. M aternal Grand Mother: alive.?1 sister(s) . . * Social History: C URRENT TOBACCO USE S moking Status: Patient does NOT smoke. C affeine: yes, frequency:some. Home smoke detector use: yes. Past smoking status: no, Smoking status: Does not smoke. * Medications: T aking Melatonin 5 MG Tablet 1 tablet in the evening Orally Once a day , Medication List reviewed and reconciled with the patient * Allergies: C efaclor. Objective: * Vitals: W t:197.8, Temp:97.8, BP:128/68, HR:63, O2 Sat:98% on RA, Nurse:VALENTIN, Ht: 70.50, BMI:27.98. * Examination: E NT/Respiratory: General Appearance: well nourished and hydrated NAD alert active well nourished and hydrated. E yes: sclera and conjunctiva clear. E ars: auditory canals normal bilaterally tympanic membranes normal bilaterally. N ose : nares patent. O ral cavity : no erythema or exudate seen on pharynx. N adwoa : supple no cervical lymphadenopathy thyroid normal; FROM. H eart : RRR. L ungs: CTAB A&P. E xtremities : no edema. G eneral Examination: Neurologic Exam: alert and oriented normal cranial nerves II-XII sensory & motor WNL; no r apid alternating eye movements. Assessment: * Assessment: 1. H earing loss - H91.90 (Primary) 2 . V ertigo - R42 3 .?Insomnia - G47.00 Plan: * Treatment: 2. V ertigo Notes: continue with PRN Meclizine; ENT referral; suggested that the large dose of Melatonin may be part of the issue with his dizziness; also discussed the hot work environment and to increase water intake; possible BPPV Referral To:. ENT ENT Reason: 3. I nsomnia Continue Melatonin Tablet, 5 MG, 1 tablet in the evening, Orally, Once a day. Notes: discussed decreasing Melatonin due to possible SE from this; discussed sleep hygiene with decrease of caffeine several hours before his HS * Procedure Codes: 9 4760 PULSE OX * Follow Up: p rn * Images: Billing Information: * Visit Code: 03018 Office Visit, Est Pt., Level 4. * Procedure Codes: 24624 PULSE OX. * Electronic signature of Elsi Olmedo APRN on 08/30/2024 at 11:07 AM EDT Sign off status: Pending * Provider: AGATHA Nino Date: 1 Generated for Shania ruff/Prashant/eTransmitting on: 0 08/30/2024 11:07 AM EDT History and Physical Notes * HPI (History of Present Illness) Category Sub-Category Detail Notes Category Not es ENT/respiratory sore throat no tobacco; occasionally ETOH; eats x3/day; caffeine =coffee 4 cups daily ear pain cough Fever rhinorrhea Constitutional fatigue Pt sts he feels like he is going to pass out. Pt sts he has been getting very dizzy. Pt sts it first started last year, and sts that over the last month it has gotten progressively worse and sts he can not get out of bed and feels like he is going to vomit. Pt sts that it comes it out of no where today he feels fine; describes his job duties which is in hot environment; he does sweat alot; he feel that he drinks plently of water; he has tried OTC meclizine which has helped; also to note he takes 25mg of melatonin for sleep; is with him and presents recent lab data which shows normal LFT, renal function, electrolytes, CBC, lipid profile Examination Category Sub-Category Detail Notes Category Not es ENT/Respiratory Oral cavity : no erythema or exudate s een on pharynx Ears: auditory canals norm al bilaterally tympanic membranes normal bilaterally Neck : supple no cervical l ymphadenopathy thyroid normal; FROM Heart : RRR Lungs: CTAB A&P Extremities : no edema General Appearance: well nourished and h ydrated NAD alert active well nourished and hydrated Nose : nares patent Eyes: sclera and conjuncti va clear General Examination Neurologic Exam: alert and o riented normal cranial nerves II-XII sensory & motor WNL; no rapid alternating eye movements Consultation Request Notes Referral Date Referring Provider Referred Provider Not es 11/30/2023 Clarissa Olmedo ENT, .
--- NOTE | 2024-08-30 | CA_ITS ---
APPROVED REPORT Exam: Exercise Treadmill Technologist: Missy Mauricio Ht: 5 ft 11 in Wt: 208 lbs BSA: 2.14 m2 HR: 63 bpm BP: 133/77 mmHg Stress Test Details Test: Exercise stress testing was performed using a Crow protocol. HR Resting HR: 63 bpm Max Heart Rate (APMHR): 191.322475 bpm Max HR Achieved: 166 bpm Target HR (85% APMHR): 162.879073 bpm % of APMHR: 86.91 Recovery HR: 115 bpm BP Resting BP: 133.0/77.0 mmHg Max BP: 170.0/94.0 mmHg Recovery BP: 159.0/87.0 mmHg ECG Resting ECG: SR. No isch or ectopy. Clinical Highest Stage Achieved: IV Stress ECG Conclusion Injected 8:15. Symptoms: None. Arrhythmias/Ectopy: None. ST-T Changes: None. Electronically signed by : Racheal Duggan MD 09/01/2024 17:57:59
--- OUTSIDE RECORDS SUMMARY | 2024-08-30 11:07 | XMS_ITS | Clinical Summary ---
Author Organization [facility] Address [address] [place] [address] Care Team Providers Care Preschool Disability Teacher Name Role Phone Pcp, No Primary Care Provider [phone] Source Comments This information has been disclosed [...] therelease of HIV test results or diagnoses. [id number] Social History Tobacco Use Types Packs/Day [...] 6:09 AM EST Performed at: - [facility] [address] [id number] Wine Master: Fco Pimentel PhD, Phone: [phone] us Jenae Henry MD LAB BLOOD ORDERABLES Final R esult [facility] 1 from Last 3 Months or Most Recently Relevant to Health Maintenance [place] [address] [place] [address] Care Teams Preschool Disability Teacher Relationship Specialty Start Date End Date Pcp, No No Address PCP - General 01/18/24
--- OUTSIDE RECORDS SUMMARY | 2024-08-30 11:07 | XMS_ITS | Patient Health Record ---
[facility] Address [address] [facility] [address] [place] [phone] Care Team Providers Care Compensation Expert Name Role Phone Steve Green Primary Care Provider Clarissa Olmedo Unavailable [phone] Allergies Allergen (clinical drug ingredient) Drug/Non Drug [...] Status W/U Status Risk Notes Problem Insomnia (820346118) Insomnia (G47.00) Active confirmed Problem Hearing loss (95123539) Hearing loss (H91.90) Active confirmed Vital Signs Heart Rate 63 /min 11/30/2023 Blood pressure diastolic 68 mm Hg 11/30/2023 Height 70.50 in 11/30/2023 Blood pressure systolic 128 mm Hg 11/30/2023 Weight 197.8 lbs 11/30/2023 BMI 27.98 kg/m2 11/30/2023 Encounters Encounter Location Date Provider [facility] [address] [place] [id number] 11/30/2023 Clarissa Olmedo Hearing loss H91.90 ; [...] [employer] [address] [place] [address] [id number] JOURDAN WILSON Self - patient is the insured Medications Administered Medication Instructions Date of Administration Dosage Notes Bicillin LA 1,200,000 11/24/2004 0.5 mL Depo- Medrol 40 mg/ml 06/03/2009 1 mL Medical (General) History Surgical History Surgery Date(Month/Year) lesion removed from lip Hospitalization History Reason Date(Month/Year) [facility] ER-ear ache 05/17/09
--- NOTE | 2024-08-30 11:15 | CA_ITS ---
APPROVED REPORT EXAM: Comprehensive 2D, Doppler, and color-flow Echocardiogram Scooping Machine Tender: ESTEBAN Scherer, RVS Ht: 5 ft 11 in Wt: 208lbs BSA: 2.14 BP: 123/70 mmHg Indications: SOA,Dizziness, Family Hx-Afib 2D Dimensions Left Atrium 2.35 cm LA Volume 30.50 mL LA Volume Index 14.626869 mL/m2 (M/F) 16-34 M-Mode Dimensions RVDd 2.48 cm (0.9-2.6) LA Diam 2.96 cm (1.9-4.0) LVDd 4.65 cm (3.5-5.7) LVDs 3.08 cm (3.5-5.7) IVSd 0.80 cm (0.6-1.1) PWd 0.77 cm (0.6-1.1) EF (Teich) 61.10% EPSs 0.64 cm FS 32.60% EDV (Teich) 95.90 mL TAPSE 2.25 (<1.7) ESV (Teich) 37.30 mL LV Diastology E Decel Time 377 (160-240 msec) E/A Ratio 1.79 MED A' 10.20 cm/s LAT A' 7.90 cm/s Aortic Valve ANDREA Index 1.30 cm2/m2 AoV Peak Christopher. 115.0 (50-130 cm/s) AO Peak GR. 5.30 mmHg AO Mean GR. 2.60 (<5 mmHg) AO VTI 22.7 (18-25 cm) ANDREA (VTI) 2.85 (2.5-4.5 cm2) Mitral Valve MV A Velocity 41.0 (40-130 cm/s) E/A Ratio 1.79 Pulmonary Valve DC End VMAX 136.0 cm/s Left Ventricle The left ventricle is normal size. The left ventricular systolic function is normal. The left ventricular ejection fraction is within the normal range. There is normal left ventricular wall thickness. There is normal LV segmental wall motion. The left ventricular diastolic function is normal. LVEF is 55%. Right Ventricle The right ventricle is normal size. The right ventricular systolic function is normal. Atria The left atrium size is normal. The right atrium size is normal. There is no Doppler evidence of interatrial shunt. Aortic Valve The aortic valve opens well. There is no aortic valvular stenosis. No aortic regurgitation is present. Mitral Valve The mitral valve is normal in structure. No evidence of mitral valve stenosis. Trace mitral regurgitation. Tricuspid Valve Tricuspid valve is grossly normal in structure and function. Trace tricuspid regurgitation. There is insufficient TR jet to estimate RVSP. Pulmonic Valve The pulmonary valve is normal in structure. Trace pulmonic regurgitation. Great Vessels The aortic root is normal in size. IVC is normal in size and collapses >50% with inspiration. Pericardium There is no pericardial effusion. Other Information Study Quality: Adequate Conclusion Normal biventricular systolic function. No significant valvular stenosis or regurgitation. Electronically signed by : Racheal Duggan MD 09/04/2024 23:52:19
--- NOTE | 2024-08-30 11:34 | NM_ITS ---
APPROVED REPORT Exam: Nuclear Stress Test Indication: soa..fatigue Patient Location: Outpatient Stress Tech: Missy Perez [place] Tech:Karina Beebe, ARRT, RT (R)(N) Ht: 5 ft 11 in Wt: 210 lbs HR: 67 bpm BP: 133/77 mmHg BSA: 2.15 m2 TID: 1.22 BMI: 29.2 History: soa..fatigue Procedure: Patient exercised on Crow protocol 9:16 minutes and sec, resting heart rate 67 bpm, resting blood pressure 133/77 mmHg, with exercise maximum heart rate achived was 167 bpm which is 87 % of the maximum predicted heart rate and blood pressure was 170/94 mmHg. Test was stopped due to fatigue. Patient denied any complaint of chest pain. Patient has average exercise capacity, achieved 10.3 METs of workload on treadmill, the blood pressure response to exercise was normal. Cardiac Stress and Resting SPECT Images: Cardiac Stress and Resting SPECT images were obtained using technetium 99m Myoview 31.6 mCi stress and 10.98 mCi at rest. Technically difficult study. There is significant soft tissue overlap with the cardiac borders. This may affect the diagnostic interpretation of the study findings. Resting and stress imaging in supine and prone position demonstrate a medium-sized, moderate, partially reversible perfusion defect in the basal to mid anterior LV wall. There is also a small-sized, moderate, partially reversible perfusion defect in the basal inferior LV wall. There is increased in transient ischemic dilatation ratio (TID 1.22), which may be suggestive of multivessel disease or balanced ischemia. Gated imaging demonstrates normal global and regional LV systolic function. LVEF is calculated at 53%. Conclusion: Technically difficult study. Medium-sized, moderate, partially reversible perfusion defect in the basal to mid anterior LV wall. There is also a small-sized, moderate, partially reversible perfusion defect in the basal inferior LV wall. Findings are suggestive of partial reversible ischemia. There is increased in transient ischemic dilatation ratio (TID 1.22), which may be suggestive of multivessel disease or balanced ischemia. Gated imaging demonstrates normal global and regional LV systolic function. LVEF is calculated at 53%. In the setting of young age, technically difficult study, and normal LV systolic function, further evaluation non-invasively with CCTA may be suggested to evaluate for multivessel coronary disease prior to proceeding with invasive coronary angiography. Electronically signed by : Racheal Duggan MD 09/01/2024 17:53:17
[2024-08-30] MEDS: SODIUM CHLORIDE 0.9% 10ML SYR (RAD ONLY) 10 ML IV ×2 (13:42→13:43)
[2024-08-30] MEDS: ISOTOPE MYOVIEW (PER STUDY) 1 DOSE IV (13:43)
== END 2024-08-30 23:59 | disposition home or self-care (01) ==
PROVIDERS: PCP Family Medicine; Visit Provider Internal Medicine
DX: R94.39 Abnormal result of other cardiovascular function study (principal); R61 Generalized hyperhidrosis; R14.0 Abdominal distension (gaseous); R42 Dizziness and giddiness; R53.83 Other fatigue; R55 Syncope and collapse; Z82.49 Family history of ischemic heart disease and other diseases of the circulatory system
CPT/HCPCS: 78452; 93016; 93017; 93018; 93306; A9502

== ENCOUNTER 2024-11-16 09:02 | Outpatient (CLI) | payer BC, SELFPAY ==
--- OUTSIDE RECORDS SUMMARY | 2023-11-30 09:15 | XMS_ITS ---
[facility] Address [address] [place] [phone] Care Team Providers Care Saw Handle Assembler Name Role Phone Steve Green Primary Care Provider [phone] Clarissa Olmedo Unavailable [phone] Allergies Allergen (clinical drug ingredient) Drug/Non Drug Allergy documented on EMR Reaction Allergy Type Onset Date Status cefaclor Cefaclor Unknown Drug Allergy Active Reason For Referral Diagnosis 1 Vertigo (R42) [facility] Referring Provider First Name Clarissa Referring Provider Last Name Honorio Referring Provider Speciality Family Pra ctice Referred Provider ENT, . Referred Provider Specialty ENT General Notes Clarissa Olmedo 1:46:53 PM > persistent vertigo ; hearing lossKeyona Julia 12/07/2023 1:54:02 PM > assigned to scheduling.Rose Brynn 12/07/2023 2:01:18 PM > faxed to [facility] ENT Referral Priority Routine REASON FOR VISIT feels like he will pass out Medications Medication SIG (Take, Route, Fr equency, Duration) Notes Start Date End Date Status Melatonin 5 MG 1 tablet in the even ing Orally Once a day Active Problems Problem Type SNOMED Code ICD Code Onset Dates Problem Status W/U Status Risk Notes Problem Hearing loss (43030058) Hearing loss (H91.90) Active confirmed Problem Insomnia (656786949) Insomnia (G47.00) Active confirmed Vital Signs Blood pressure systolic 128 mm Hg 11/30/19 24 Blood pressure diastolic 68 mm Hg 024 Heart Rate 63 /min 11/30/2023 Height 70.50 in 11/30/2023 Weight 197.8 lbs 11/30/2023 BMI 27.98 kg/m2 11/30/2023 Encounters Encounter Location Date Provider Diagnosis [facility] [address] [place] [phone] 11/30/2023 Clarissa Olmedo Hearing loss H91.90 ; [...] prn, Reason: Progress Notes * JOURDAN WILSONDOB:[birth year] (29 yo M)Acc No.[id number]:11/30/2023 Progress Notes Patient: Alok MARYSEJOURDAN oV Provider: AGATHA Nino :1995 A ge:28 Y S ex:Male Date:11/30/2023 Address:[facility] [address], [id number] Pcp:Steve Green Subjective: * Chief Complaints: * [...] * Images: Billing Information: * Visit Code: 74272 Office Visit, Est Pt., Level 4. * Procedure Codes: 44009 PULSE OX. * Electronic signature of Elsi Olmedo APRN on 11/16/2024 at 09:05 AM EDT Sign off status: Pending * Provider: AGATHA Nino Date: 1 Generated for Shania ruff/Prashant/Innaitting on: 0 11/16/2024 09:05 AM EDT History and Physical Notes * [...]
--- OUTSIDE RECORDS SUMMARY | 2024-11-16 09:05 | XMS_ITS | Clinical Summary ---
Author Organization [facility] Address [address] [place] [id number] Care Team Providers Care Vessel Crew Member Name Role Phone Pcp, No Primary Care Provider [phone] Source Comments This information has been disclosed [...] therelease of HIV test results or diagnoses. [id number] Social History Tobacco Use Types Packs/Day [...] 3-dose series) 2013 Immunization: COVID-19 ( season) 2024 Immunization: Influenza (MyC gould) (#1) 2024 Hepatitis [...] 6:09 AM EST Performed at: - [facility] [address] [id number] [employer] Operator: Fco Pimentel PhD, Phone: [phone] us Jenae Herny MD LAB BLOOD ORDERABLES Final R esult [facility] from Last 3 Months or Most Recently Relevant to Health Maintenance [place] [address] [address] Care Teams Vessel Crew Member Relationship Specialty Start Date End Date Pcp, No No Address PCP - General 01/18/24
--- OUTSIDE RECORDS SUMMARY | 2024-11-16 09:05 | XMS_ITS | Patient Health Record ---
Author Organization [facility] Address [address] [facility] [address] [place] [id number] Care Team Providers Care Senior Mechanical Technician Name Role Phone Steve Green Primary Care Provider Clarissa Olmedo Unavailable [phone] Allergies Allergen (clinical drug ingredient) Drug/Non Drug [...] Status W/U Status Risk Notes Problem Insomnia (348034584) Insomnia (G47.00) Active confirmed Problem Hearing loss (78942436) Hearing loss (H91.90) Active confirmed Vital Signs Heart Rate 63 /min 11/30/2023 Blood pressure diastolic 68 mm Hg 11/30/2023 Height 70.50 in 11/30/2023 Blood pressure systolic 128 mm Hg 11/30/2023 Weight 197.8 lbs 11/30/2023 BMI 27.98 kg/m2 11/30/2023 Encounters Encounter Location Date Provider Diagnosis [facility] [address] [place] [id number] 11/30/2023 lCarissa Olmedo Hearing loss H91.90 ; Vertigo R42 [...] MAGGI [employer] [address] [place] [address] [phone] [id number] JOURDAN WILSON Self - patient is the insured Medications Administered Medication Instructions Date of Administration Dosage Notes Bicillin LA 1,200,000 11/24/2004 0.5 mL Depo- Medrol 40 mg/ml 06/03/2009 1 mL Medical (General) History Surgical History Surgery Date(Month/Year) lesion removed from lip Hospitalization History Reason Date(Month/Year) [facility] ER-ear ache 05/17/09
[2024-11-16 09:23] VITALS: BMI 30.8
[2024-11-16] MEDS: METOPROLOL TARTRATE 50MG TABLET PO (09:42)
[2024-11-16] MEDS: IVABRADINE HCL 7.5MG TABLET PO (09:42)
[2024-11-16 09:45] VITALS: BP 126/85; PULSE 70; RESP 18; TEMP 36.2; O2SAT 99
[2024-11-16 09:57] LABS: Anion Gap 10.3 mEq/L (5-15); Blood Urea Nitrogen 16 mg/dl (9-20); Calcium 9.0 mg/dl (8.4-10.2); Carbon Dioxide 25 mmol/L (22.0-30.0); Chloride 104 mmol/L (98-107); Creatinine Clearance Estimated 166 mL/min (50-200); Creatinine,Serum 0.90 mg/dl (0.66-1.25); Estimated Glomerular Filt Rate 99 ml/min (>60); GFR (African American) 120 ML/MIN (>60); Glucose 95 mg/dl (74-100); Potassium 4.3 mmoL/L (3.5-5.1); Sodium 135 mmol/L (136-145)
--- NOTE | 2024-11-16 10:00 | CT_ITS ---
APPROVED REPORT Community Affairs Director: CLINICAL INDICATION Chest Pain TECHNIQUE Image Acquisition: A 128 slice MDCT scanner (Getting-ina View) was used for data acquisition. A noncontrast coronary calcium scan was performed. A CT attenuation threshold of 130 Hounsfield units (HU) was used for the detection of calcium in contiguous voxels of 1 sq mm in area to be counted as individual lesions. Bolus tracking in the ascending aorta with a threshold of 180 HU was performed. Immediately afterwards, ECG synchronized cardiac CT was then performed from the cardiac base to apex using retrospective gating with ECG tube current modulation. A total of 85 mL of Isovue 370 mg/mL contrast medium was administered at 5 mL/sec followed by a saline flush using a biphasic injection protocol. A tube voltage of 120 KVp was used. The patient received the following medications prior to the cardiac CT. 50 mg of oral metoprolol 15 mg of intravenous metoprolol 0.8 mg of sublingual nitroglycerin The average heart rate at the time of acquisition was 65 bpm and regular. Image Reconstruction Transaxial images were reconstructed at 0.67 mm slide thickness. Data was reviewed interactively on an advanced workstation capable of 2 and 3-dimensional displays in all conventional reconstruction formats, including multiplanar reformations, maximum intensity projections, curved multiplanar reformations, and volume rendered reconstructions. When applicable, selected routine images describing the relevant coronary anatomy and pathology were saved and sent to PACS. Complications None Technical Quality Overall image quality was good. Coronary artery opacification was adequate. Total DLP (Dose-Length Product) is 1411.4 mGy-cm. The reported value represents the total of one or more individual components during the CT acquisition of this date and at this time, and as such, the same value may appear in more than one CT report depending on the interpreting/reporting physicians. COMPARISON None FINDINGS CT Coronary Calcium Scoring LMA (Left Main Artery) = 0 LAD (Left Anterior Descending) = 0 LCX (Left Coronary Circumflex) = 0 RCA (Right Coronary Artery) = 0 Total Calcium Score = 0 using the AJ-130 method. The interpretation of the calcium heart score is based on the following continuum*: 0 = no calcified plaque detected (risk of coronary artery disease is very low ??? less than 5%) 1-10 = calcium detected in extremely minimal levels (risk of coronary diseases is still low ??? less than 10%) 11-100 = mild levels of plaque detected with certainty (mild or minimal narrowing of heart arteries is likely) 101-400 = definite,at least moderate levels of plaque detected (relatively high risk of a heart attack within 3-5 years) >401-999 = extensive levels of plaque detected (high risk of heart attack, high levels of vascular disease are present, high likelihood of at least one significant coronary narrowing) *The calcium heart score quantifies the burden of coronary calcification/plaque in the coronary arteries. The calcium heart score is not able to evaluate the presence or burden of non-calcified (i.e. soft) plaque. There is no identifiable calcification in the aortic valve, mitral annulus or mitral valve, pericardium, or myocardium. Coronary CT Angiography The coronary arterial system is right dominant. Quantitative Stenosis Grading: Left Main (LM): The left main originates normally from the left sinus of Valsalva. The LM bifurcates into the left anterior descending artery and left circumflex artery. The LM is patent with no evidence of atherosclerosis. Left Anterior Descending (LAD) and Diagonal Branches: The LAD gives off 2 diagonal branch(es). The LAD and its branches are patent with no evidence of atherosclerosis. There is no evidence of LAD-myocardial bridge. Left Circumflex (LCX) and Obtuse Marginals (OM): The LCX gives off 1 Obtuse Marginal (OM) branch(es). The LCX and its branches are patent with no evidence of atherosclerosis. Right Coronary Artery (RCA): The RCA originates normally from the right sinus of Valsalva. The RCA gives off a posterior descending artery (PDA) and posterolateral (PL) branches. The RCA and its branches are patent with no evidence of atherosclerosis. Non-Coronary Cardiac Findings: Analysis of the left ventricular (LV) structure and function was performed after 3-D reconstruction of the LV from axial images, with user-corrected automatic contouring for assessment of LV volumes and user-defined reconstruction from oblique planes for measurement of 3-D cardiac structure and function. -The left ventricle systolic function is normal. -There is no left atrial appendage filling defect. Two right pulmonary veins and two left pulmonary veins drain normally into the left atrium. -No pericardial thickening or calcification. -Central and branch pulmonary arteries in the [id number] are unremarkable. -Thoracic aorta within the visualized thoracic aortic-branches in the [id number] is unremarkable. Extracardiac Structures No significant extra-cardiac findings. Note, however, that this study is focused on the cardiac findings. IMPRESSION -Absence of coronary calcification with an Agatston score = 0 using the AJ-130 method. -No evidence of significant flow-limiting atherosclerosis of the coronary arteries. -No evidence of coronary anomalies or myocardial bridges. -CAD-RADS 0. Management recommendations per ACC/AHA guidelines*, as clinically appropriate. *Recommendations: CAD RADS 0: Reassurance. Consider non-atherosclerotic causes of chest pain. CAD RADS 1: Consider non-atherosclerotic causes of chest pain. Consider preventive therapy and risk factor modification. CAD RADS 2: Consider non-atherosclerotic causes of chest pain. Consider preventive therapy and risk factor modification, particularly for patients with nonobstructive plaque in multiple segments. CAD RADS 3: Consider further functional testing. Consider symptom-guided anti-ischemic and preventive pharmacotherapy as well as risk factor modification per published guideline statements. CAD RADS 4A: Consider further functional testing or invasive coronary angiography with revascularization per published guideline statements. Consider symptom-guided anti-ischemic and preventive pharmacotherapy as well as risk factor modification per published guideline statements. CAD RADS 4B: Invasive coronary angiography recommended with revascularization per published guideline statements. Consider symptom-guided anti-ischemic and preventive pharmacotherapy as well as risk factor modification per published guideline statements. CAD RADS 5: Consider invasive angiography and/or viability assessment with revascularization per published guideline statements. Consider symptom-guided anti-ischemic and preventive pharmacotherapy as well as risk factor modification per published guideline statements. CRITICAL RESULT None COMMUNICATION Per this written report The coronary and cardiac findings of this CCTA were reviewed, reported, and signed by Nnamdi Duggan MD ([place]) Conclusion Electronically signed by : Racheal Duggan MD 11/27/2024 23:49:12
[2024-11-16 10:15] VITALS: BP 130/87; PULSE 98; RESP 18; O2SAT 98
[2024-11-16] MEDS: NITROGLYCERIN 0.4MG SL TABLET SL (10:15)
[2024-11-16 10:20] VITALS: BP 118/76; PULSE 65; RESP 18; O2SAT 99
[2024-11-16 10:25] VITALS: BP 122/62; PULSE 61; RESP 18; O2SAT 99
[2024-11-16 10:35] VITALS: BP 129/75; PULSE 61; RESP 18; O2SAT 98
[2024-11-16] MEDS: 0.9 % SODIUM CHLORIDE 50 ML VIAL IV (10:39)
[2024-11-16] MEDS: IOPAMIDOL-370 (76%);100ML BOTTLE 80 ML IV (10:40)
[2024-11-16] MEDS: SODIUM CHLORIDE 0.9% 10ML SYR (RAD ONLY) 10 ML IV (10:40)
== END 2024-11-16 23:59 | disposition home or self-care (01) ==
PROVIDERS: PCP Family Medicine; Visit Provider Physician Assistant
DX: R93.1 Abnormal findings on diagnostic imaging of heart and coronary circulation (principal); R55 Syncope and collapse; R42 Dizziness and giddiness
CPT/HCPCS: 75574; 80048; Q9967